=== PATIENT | male | born 1990 | race Hispanic/Latino ===

== ENCOUNTER 2018-07-19 22:25 | Emergency (ER) | payer OTHER, BC ==
[2018-07-19] MEDS ORDERED: Adacel (T-DAP) 0.5 ML VIAL ONE (22:34)
[2018-07-19] MEDS ORDERED: Lidocaine 1% (PF) 30 ML VIAL ONE (22:37)
[2018-07-19] MEDS ORDERED: Bacitracin Zinc 1 Packet ONE (22:57)
== END 2018-07-19 23:05 | disposition home or self-care (01) ==
LOC: NAV ERS 22:25
DX: S61.412A Laceration without foreign body of left hand, initial encounter (principal); W26.0XXA Contact with knife, initial encounter
CPT/HCPCS: 12002; 90471; 90715; J2001